=== PATIENT | female | born 1970 | race Two or more races ===

== ENCOUNTER 2024-11-04 08:40 | Day surgery (SDC) | payer MEDICAID, SELFPAY ==
--- NOTE | 2024-11-01 06:21 | EKG_ITS ---
[facility] Test Date: 2024-11-01 Pat Name: FLOR KNAPPODepartment: Room: - Gender: Female Tractor Trailer Operator: DIONNE : 1970 Requested By: Margarito Newton Order Number: [id number] Reading MD: Margarito Newton Measurements Intervals [place] Rate: 82 P: 49 KS: 177 QRS: 8 QRSD: 94 T: 36 QT: 379 QTc: 444 Interpretive Statements SINUS RHYTHM POSSIBLE LEFT ATRIAL ENLARGEMENT [-0.1mV P WAVE IN V1/V2] No previous ECG available for comparison /[id number]/[email or web address]/[id number]
[2024-11-01 08:57] VITALS: BMI 34.7
[2024-11-01 09:30] LABS: Collection Type, Urine Clean Catch
[2024-11-01 09:51] LABS: Basophils % (Auto) 0 % (0-2.5); Eosinophils # (Auto) 0.2 Thou/mm3 (0.0-0.5); Eosinophils % (Auto) 2 % (0-10); Hematocrit 40.1 % (36.0-46.0); Hemoglobin 13.2 g/dL (12.0-16.0); Immature Granulocytes % (Auto) 0 % (0-0); Immature Granulocytes Auto 0.03 Thou/mm3 (0.00-0.00); Lymphocytes # (Auto) 1.9 Thou/mm3 (1.0-4.8); Lymphocytes % (Auto) 20 % (10-50); Mean Corpuscular HGB Conc 32.9 g/dl (31.0-37.0); Mean Corpuscular Hemoglobin 28.3 pg (25.0-35.0); Mean Corpuscular Volume 86 fL (80-100); Monocytes # (Auto) 0.6 Thou/mm3 (0.0-0.8); Monocytes % (Auto) 6 % (0-12); Neutrophils # (Auto) 6.8 Thou/mm3 (1.8-7.7); Neutrophils % (Auto) 71 % (37-80); Nucleated Red Blood Cell % 0 /100 WBC (0); Platelet Count 416 Thou/mm3 (140-440); RDW Standard Deviation 41.8 fL (36.4-46.3); Red Blood Count 4.67 Miln/mm3 (4.00-5.20); White Blood Count 9.6 Thou/mm3 (3.6-11.0)
[2024-11-01 09:57] LABS: Bilirubin,Urine Negative (Negative); Blood,Urine Negative (Negative); Clarity,Urine Clear (Clear/Hazy); Color,Urine Lt-Yellow (Lt Yel-Yel); Glucose, Urine 4+ (Negative); Ketones,Urine 1+ (Negative); Leukocyte Esterase,Urine Negative (Negative); Nitrite,Urine Negative (Negative); Protein,Urine Negative (Neg - Trace); RBC,Urine 6 /hpf (0-3); Specific Gravity,Urine 1.044 (1.001-1.035); Squamous Epithelial Cell,Urine 1 /hpf (0-5); Urobilinogen,Urine Negative mg/dL (0.0-1.0); WBC,Urine 2 /hpf (0-5)
[2024-11-01 10:02] LABS: Partial Thromboplastin Time 29.2 Seconds (22.0-36.0)
[2024-11-01 10:04] LABS: Alanine Aminotransferase 76 U/L (10-49); Albumin, Serum 4.3 gm/dL (3.5-5.0); Alkaline Phosphatase 85 U/L (46-116); Anion Gap 10 (7-16); Aspartate Amino Transferase 55 U/L (0-34); BUN/Creatinine Ratio 30 Ratio (12-20); Bilirubin,Total 0.3 mg/dL (0.3-1.2); Blood Urea Nitrogen 21 mg/dL (9-23); Calcium 9.4 mg/dL (8.3-10.6); Calcium (Corrected) 9.4 mg/dL (8.5-10.1); Carbon Dioxide 24.7 mMol/L (20.0-31.0); Chloride 102 mMol/L (98-107); Creatinine (Component) 0.7 mg/dL (0.6-1.3); Estimated Creatinine Clearance 103.1 mL/min (>60); Globulin 2.2 gm/dL (2.3-3.5); Glucose 173 mg/dL (74-106); Osmolality,Calculated 280 (275-295); Potassium 3.4 mMol/L (3.4-5.1); Sodium 137 mMol/L (136-145); Total Protein 6.5 gm/dL (5.7-8.2); eGFR > 60 See Note
[2024-11-04] VITALS (8 sets, daily range): BP systolic 123–141; BP diastolic 70–86; PULSE 83–95; RESP 12–17; TEMP 36.2–36.8; O2SAT 93–99; BMI 35.6
[2024-11-04] MEDS: RINGERS LACTATED 1000 ML 1,000 ML 60 ML IV (09:35)
--- NOTE | 2024-11-04 13:28 | PD.SUROPNT ---
Date of Procedure 11/04/24 Pre Op Diagnosis Incarcerated ventral incisional hernia Post Op Diagnosis Same. Procedure Exploration of the incarcerated hernia and a repair with implantation of a Ventrio ST patch and partial omentectomy on 11/04/2024 Findings This patient had a previous incision in the supraumbilical region and she had a large hernia measured about 12 cm in diameter. Omentum was incarcerated and could not be reduced. Required extension of the defect and resection of the incarcerated omentum. There were no other findings. Procedure Description The patient is interviewed in the preoperative area and the procedure was discussed in detail with the patient including expectation of outcomes. Explanation of the technique and complications. An informed consent was obtained. Anesthesia consent was obtained by the anesthesiologist. The hernia sites were marked on the surface. Patient is brought back to the operating room. The patient is positioned supine on the operating table and general anesthesia is administered in a satisfactory manner. The chest abdomen and thigh genitalia regions are prepped and draped in usual manner. IV antibiotics were given and a timeout procedure was carried out. Intraoperative ultrasound is carried out with 7.5 MHz linear digital ultrasound probe. The hernia defects were identified and marked on the surface to assess the extent of the procedure. Then the local anesthesia quarter percent Marcaine with epinephrine is used. Vertical incision is made around the previous incision and scar is removed. Dissection is carried out in the subcutaneous tissue to the fascia and the 3 different defects are identified. Gentle dissection is carried out and hernia sacs are isolated. The sac is opened and was removed as specimen. There were significantly dense adhesions of the omentum within the hernia sac and surrounding subcutaneous tissue. The omentum could not be reduced and therefore I had to resect the omentum ligating that with 2-0 silk ties and sequentially and removing the incarcerated omentum. The incision needed to be extended in order to do the lysis of adhesions on the inside. After all that he the contents are reduced. Hemostasis is achieved. Dissection is carried out circumferentially from the peritoneal side to make sure there were no adhesions and bowel attached to the anterior abdominal wall. Lysis of adhesions is carried out on the peritoneal side releasing the omental adhesions circumferentially to about 10 cm around. All the hernias defects were incorporated into one defect. The defect is measured. It is about 12.5 cm in length and 5 cm in the width. The laps and instrument counts are obtained they are correct x2 and then I selected a Ventrio ST round 14.5 cm patch to be placed in the underlay position. The patch is round and measures about 14.5 cm in maximum diameter. The patch is secured in the preperitoneal space and attached to the fascia in circumferential manner by interrupted O' Ethibond stitches. Laps and instrument counts were correct ?2. The defect in the fascia is closed over the patch. Patch was previously irrigated with gentamicin solution. Hemostasis is achieved. Operative field is thoroughly irrigated with saline solution and the subcutaneous tissues approximated with 3-0 chromic interrupted suture. The skin is approximated by 4-0 Monocryl subcuticular stitches. Steri-Strips are applied. Sterile dressing and abdominal binder is applied. Patient tolerated the procedure very well complications none. Patient is transferred to recovery room in a satisfactory condition. Anesthesia GETA Drains None. Implants Ventrio ST wound patch. Pathology / specimen Other (Omentum and hernia sac) Estimated Blood Loss 10 Condition Stable Disposition PACU Surgeon Margarito Newton MD Surgical Staff Operation Date: 11/04/24 11:15 Case Staff CLINICAL MENTAL HEALTH COUNSELOR: Alejandro Jon RN First Assistant: Arlene Adler, SILVIA template layout worker Marii nuclear technologist with student
--- NOTE | 2024-11-04 13:45 | SUR.PHASEI ---
1345: Pt. wakes to name then drifts back to sleep, vitals stable, breathing unlabored, no complaint of pain or nausea, dressing to ABD CDI, no active bleed noted, report received from Saurabh VIVAS and Casimiro VEGA
[2024-11-04] MEDS: HYDROmorphone INJ 2 MG/ML VIAL 0.5 MG IVP (13:57)
[2024-11-04] MEDS: fentaNYL CIT INJ 50 mCg/ML AMP 2ML IVP (14:11)
--- NOTE | 2024-11-04 14:50 | SUR.PHASEII ---
1450: Pt. AAOx4, vitals stable, breathing unlabored, no complaint of pain or nausea, dressing to ABD CDI, no active bleed noted, pt. tolerated sips of water well, pt. ambulated to wheelchair with steady gait and no assist, no complications. Gave discharge instructions to the pt. and her ride, both verbalized understanding and had no further questions. Pt. left with all personal belongings.
== END 2024-11-04 14:50 | disposition home or self-care (01) ==
PROVIDERS: PCP Behavior Technician; Referring Provider Specialist; Visit Provider Specialist
PROC: (CPT 49596; principal; 2024-11-04 11:00)
DX: K43.0 Incisional hernia with obstruction, without gangrene (principal); Z01.810 Encounter for preprocedural cardiovascular examination
CPT/HCPCS: 49596; 36415; 80053; 81001; 85025; 85730; 93005; A4217; A4649; C1781; J0131; J0694; J1100; J1171; J1580; J1885; J2250; J2371; J2405; J2704; J2765; J3010; J3490; J7030; J7120; A9270; J0665